=== PATIENT | female | born 1990 | race Caucasian/White ===

== ENCOUNTER 2016-12-12 19:51 | Emergency (ER) | payer SELFPAY ==
[~2016-12-12] VITALS: Ht 172.7 cm; Wt 74.8 kg
[2016-12-12 19:52] VITALS: BP 137/82; PULSE 100; RESP 14; TEMP 97.9; O2SAT 100
[2016-12-12 20:50] LABS: GLUCOSE,URINE NEG (NEG); KETONE, URINE 15 mg/dL (NEG); NITRITE,URINE NEG (NEG)
[2016-12-12 21:02] LABS: BLOOD, URINE TRACE (NEG)
[2016-12-12 21:08] LABS: SQUAMOUS EPITHELIAL CELL URINE 0-5 /hpf (0-5); URINE COLOR STRAW (YELLW/STRAW)
[2016-12-12 21:09] LABS: RBC, URINE 0-3 /hpf (0-3)
[2016-12-12 21:10] LABS: BACTERIA, URINE RARE /hpf; WBC, URINE 0-2 /hpf (0-5)
[2016-12-12 21:14] LABS: COMMENT (UR) CULT NOT INDICATED; CULTURE IF INDICATED CULT NOT INDICATED
[2016-12-12] MEDS ORDERED: CIPR-9 PO (21:57)
[2016-12-12] MEDS ORDERED: PREV15CA15 PO (21:57)
[2016-12-12] MEDS ORDERED: ZANT150T2 PO (21:57)
--- NOTE | 2016-12-12 22:18 | PD ---
HPI Chief Complaint: GI Complaint Time Seen by Provider: 22:04 Travel History International Travel<30 days: No Contact w/Intl Traveler<30days: No Traveled to known affect area: No History of Present Illness HPI The patient is a 26-year-old female that for 2-3 weeks has had intermittent constipation/diarrhea and midline epigastric pain. She denies any blood in the stool or vomitus. She denies any recent foreign travel, well water ingestion, recent antibiotics except that 3 weeks ago took part of the Z-Juvenal but didn't complete it, exposure to anyone with similar symptoms, fever, history of bowel problems like regional enteritis or ulcerative colitis. She does have some chills. 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 She states she cannot be and a test here on the urine was negative. She went to an urgent care center today and was prescribed Cipro which she came here for a second opinion. She does not have any insurance or primary care doctor. [facility] Past Medical History Medical History: Denies Significant Hx Diminished Hearing: No Immunizations Current: No Tetanus Vaccination: Unknown Influenza Vaccination: No ?: Not LMP: 9-18-17 : 0 Past Surgical History Surgical History: No Previous Surgery Social History Alcohol Use: Yes (SOCIAL) Tobacco Use: No Substance Use: No Allergies-Medications (Allergen,Severity, Reaction): Coded Allergies: No Known Allergies (Unverified , 12/12/16) Reported Meds & Prescriptions Reported Meds & Active Scripts Active Reported Zantac (Ranitidine HCl) 150 Mg Tab 150 Mg PO DAILY Prevacid (Lansoprazole) 15 Mg Capdr 15 Mg PO DAILY Cipro (Ciprofloxacin HCl) 500 Mg Tab 500 Mg PO BID Review of Systems Except as stated in HPI: all other systems reviewed are Neg Physical Exam Narrative GENERAL: The patient is alert, oriented 3, minimally dehydrated appearing in minimal apparent distress with her abdominal discomfort. Her heart rate is 100 but the rest of her vital signs are normal. She does appear anxious. SKIN: Focused skin assessment warm/dry. HEAD: Atraumatic. Normocephalic. EYES: Pupils equal and round. No scleral icterus. No injection or drainage. ENT: No nasal bleeding or discharge. Mucous membranes pink and moist. NECK: Trachea midline. No JVD. CARDIOVASCULAR: Regular rate and rhythm. No murmur appreciated. RESPIRATORY: No accessory muscle use. Clear to auscultation. Breath sounds equal bilaterally. GASTROINTESTINAL: Abdomen soft, with tenderness to direct palpation in the midline epigastrium, nondistended. Hepatic and splenic margins not palpable. No guarding or rebound is present. Gonsalez's sign is negative. MUSCULOSKELETAL: No obvious deformities. No clubbing. No cyanosis. No edema. NEUROLOGICAL: Awake and alert. No obvious cranial nerve deficits. Motor grossly within normal limits. Normal speech. PSYCHIATRIC: The patient does appear slightly anxious; insight and judgment normal. Data Data Last Documented VS Vital Signs Date Time Temp Pulse Resp B/P (MAP) Pulse Ox O2 Delivery O2 Flow Rate FiO2 12/12/16 23:26 98.2 78 14 124/69 (87) 99 Room Air Orders Orders Urinalysis - C+S If Indicated (12/12/16 20:23) Ed Urine Pregnancytest Poc (12/12/16 20:23) Complete Blood Count With Diff (12/12/16 22:54) Comprehensive Metabolic Panel (12/12/16 22:54) Lipase (12/12/16 22:54) Ct Abd/Pel W Iv Contrast(Rout) (12/12/16 22:54) Iv Access Insert/Monitor (12/12/16 22:54) Ecg Monitoring (12/12/16 22:54) Oximetry (12/12/16 22:54) Sodium Chloride 0.9% Flush (Ns Flush) (12/12/16 23:00) Sodium Chlor 0.9% 1000 Ml Inj (Ns 1000 M (12/12/16 23:00) Iohexol 350 Inj (Omnipaque 350 Inj) (12/12/16 23:35) Labs Laboratory Tests Test 12/12/16 20:32 12/12/16 23:20 Urine Color STRAW Urine Turbidity CLEAR Urine pH 6.0 Urine Specific [place] 1.004 Urine Protein NEG mg/dL Urine Glucose (UA) NEG mg/dL Urine Ketones 15 mg/dL Urine Occult Blood TRACE Urine Nitrite NEG Urine Bilirubin NEG Urine Leukocyte Esterase TRACE Urine RBC 0-3 /hpf Urine WBC 0-2 /hpf Urine Squamous Epithelial Cells 0-5 /hpf Urine Bacteria RARE /hpf Microscopic Urinalysis Comment CULT NOT INDICATED White Blood Count 9.3 TH/MM3 Red Blood Count 4.82 MIL/MM3 Hemoglobin 14.3 GM/DL Hematocrit 42.6 % Mean Corpuscular Volume 88.3 FL Mean Corpuscular Hemoglobin 29.7 PG Mean Corpuscular Hemoglobin Concent 33.7 % Red Cell Distribution Width 12.2 % Platelet Count 247 TH/MM3 Mean Platelet Volume 9.0 FL Neutrophils (%) (Auto) 70.5 % Lymphocytes (%) (Auto) 24.1 % Monocytes (%) (Auto) 4.2 % Eosinophils (%) (Auto) 0.7 % Basophils (%) (Auto) 0.5 % Neutrophils # (Auto) 6.6 TH/MM3 Lymphocytes # (Auto) 2.2 TH/MM3 Monocytes # (Auto) 0.4 TH/MM3 Eosinophils # (Auto) 0.1 TH/MM3 Basophils # (Auto) 0.0 TH/MM3 CBC Comment DIFF FINAL Differential Comment Blood Urea Nitrogen 7 MG/DL Creatinine 0.59 MG/DL Random Glucose 88 MG/DL Total Protein 7.4 GM/DL Albumin 4.0 GM/DL Calcium Level 9.1 MG/DL Alkaline Phosphatase 54 U/L Aspartate Amino Transf (AST/SGOT) 9 U/L Alanine Aminotransferase (ALT/SGPT) 18 U/L Total Bilirubin 0.6 MG/DL Sodium Level 137 MEQ/L Potassium Level 3.3 MEQ/L Chloride Level 104 MEQ/L Carbon Dioxide Level 25.3 MEQ/L Anion Gap 8 MEQ/L Estimat Glomerular Filtration Rate 122 ML/MIN Lipase 145 U/L MDM Medical Decision Making Medical Screen Exam Complete: Yes Emergency Medical Condition: Yes Medical Record Reviewed: Yes Interpretation(s) The CT abdomen/pelvis is normal. The complete metabolic profile is normal except for a potassium of 3.3. The lipase is normal. The CBC is normal. The urinalysis is normal except for trace occult blood and trace leukocyte esterase and rare bacteria and culture is not indicated. Differential Diagnosis Reflux esophagitis, Irritable bowel syndrome, gastroenteritis, colitis, cholecystitis, cholelithiasis with colic, dehydration, electrolyte disorder, anemia Narrative Course The patient has symptoms of both reflux esophagitis and irritable bowel syndrome. There is no evidence for the above possibilities except possibly gastroenteritis by history. Plan: The patient be given prescriptions for Zantac, Compazine and Prilosec. For temporary relief of her midline epigastric discomfort she can try liquid Maalox or Mylanta. Diagnosis Primary Impression: Reflux esophagitis Additional Impression: Irritable bowel syndrome Additional Instructions: As we discussed, if the symptoms are persistent you may need to see a specialist , a classifications officer cc/cm. The Zantac is one tablet twice daily in the Prilosec is one tablet once daily. Try liquid Maalox/Mylanta for temporary relief of some of your midline upper abdominal symptoms. The prochlorperazine is for nausea. This tablet is one every 6 hours as needed. Med/Other Pt SpecificInfo: Prescription(s) given Scripts Omeprazole (Omeprazole) 20 Mg Tab 20 MG PO DAILY, #30 TAB 0 Refills Prov: Niranjan Bolden MD 12/13/16 Ranitidine (Zantac) 150 Mg Tab 150 MG PO BID for Reduce Stomach Acid, #60 TAB 0 Refills Prov: Niranjan Bolden MD 12/13/16 Prochlorperazine Maleate (Prochlorperazine Maleate) 10 Mg Tab 10 MG PO Q6H Y for NAUSEA OR VOMITING, #30 TAB 0 Refills Prov: Niranjan Bolden MD 12/13/16 Disposition: 01 DISCHARGE HOME Condition: Stable Niranjan Bolden MD Dec 12, 2016 22:18
[2016-12-12] MEDS ORDERED: SODIUM CHLORIDE 0.9% FLUSH 10 ML FLUSH IV FLUSH PRN (23:00)
[2016-12-12] MEDS ORDERED: SODIUM CHLOR 0.9% 1000 ML INJ 1,000 ML IV SCH (23:00)
[2016-12-12 23:26] VITALS: BP 124/69; PULSE 78; RESP 14; TEMP 98.2; O2SAT 99
[2016-12-12] MEDS ORDERED: IOHEXOL 350 MG/ML 10 ML VIAL (for RAD DIAG) IVCONTRAST ONE (23:35)
[2016-12-12 23:40] LABS: AUTOMATED NEUTROPHIL # 6.6 TH/MM3 (1.8-7.7); BASOPHIL % 0.5 % (0.0-2.0); EOSINOPHIL # 0.1 TH/MM3 (0-0.4); EOSINOPHIL % 0.7 % (0.0-4.0); HEMATOCRIT 42.6 % (35.0-46.0); HEMO FLAGS DIFF FINAL; LYMPH % 24.1 % (9.0-44.0); LYMPHOCYTE # 2.2 TH/MM3 (1.0-4.8); MEAN CELL VOLUME 88.3 FL (80.0-100.0); MEAN CORPUSCULAR HEMOGLOBIN 29.7 PG (27.0-34.0); MEAN CORPUSCULAR HGB CONC 33.7 % (32.0-36.0); MONO % 4.2 % (0.0-8.0); NEUT % 70.5 % (16.0-70.0); PLATELET COUNT 247 TH/MM3 (150-450); RED BLOOD COUNT 4.82 MIL/MM3 (4.00-5.30); RED CELL DISTRIBUTION WIDTH 12.2 % (11.6-17.2); WHITE BLOOD COUNT 9.3 TH/MM3 (4.0-11.0)
--- NOTE | 2016-12-12 23:42 | RADRPT ---
EXAM DATE/TIME: 12/12/2016 23:25 [facility] COMPARISON: No previous studies available for comparison. INDICATIONS : Mid epigastric pain. IV CONTRAST: 100 cc Omnipaque 350 (iohexol) IV ORAL CONTRAST: No oral contrast ingested. RADIATION DOSE: 10.58 CTDIvol (mGy) MEDICAL HISTORY : None SURGICAL HISTORY : None. ENCOUNTER: Initial ACUITY: 3 weeks PAIN SCALE: 5/10 LOCATION: upper quadrant midline TECHNIQUE: Volumetric scanning of the abdomen and pelvis was performed. Using automated exposure control and ad justment of the mA and/or kV according to patient size, radiation dose was kept as low as reasonably achievable to obtain optimal diagnostic quality images. DICOM format image data is available electro nically for review and comparison. FINDINGS: LOWER LUNGS: The visualized lower lungs are clear. LIVER: Homogeneous density without lesion. There is no dilation of the biliary tree. No calcified gallston es. SPLEEN: Normal size without lesion. PANCREAS: Within normal limits. KIDNEYS: Normal in size and shape. There is no mass, stone or hydronephrosis. ADRENAL GLANDS: Within normal limits. VASCULAR: There is no aortic aneurysm. BOWEL/MESENTERY: The stomach, small bowel, and colon demonstrate no acute abnormality. There is no free intraperitone al air or fluid. ABDOMINAL WALL: Within normal limits. RETROPERITONEUM: There is no lymphadenopathy. BLADDER: No wall thickening or mass. REPRODUCTIVE: Minimal free fluid. No evidence of adnexal mass. INGUINAL: There is no lymphadenopathy or hernia. MUSCULOSKELETAL: Within normal limits for patient age. CONCLUSION: Normal examination. Baljinder Louise MD on December 12, 2016 at 23:37 Board Certified Radiologist. This report was verified electronically.
[2016-12-12 23:47] LABS: CHLORIDE 104 MEQ/L (98-107); POTASSIUM 3.3 MEQ/L (3.5-5.1); SODIUM (NA) 137 MEQ/L (136-145)
[2016-12-12 23:52] LABS: ANION GAP 8 MEQ/L (5-15); BICARBONATE 25.3 MEQ/L (21.0-32.0); BLOOD UREA NITROGEN 7 MG/DL (7-18)
[2016-12-12 23:54] LABS: ALT (GPT) 18 U/L (10-53); AST (GOT) 9 U/L (15-37)
[2016-12-12 23:55] LABS: GLOMERULAR FILTRATION RATE 122 ML/MIN (>89)
[2016-12-12 23:56] LABS: TOTAL BILIRUBIN ADULT 0.6 MG/DL (0.2-1.0)
[2016-12-12 23:57] LABS: ALKALINE PHOSPHATASE 54 U/L (45-117)
[2016-12-13] MEDS ORDERED: ZANT150T2 PO (00:11)
[2016-12-13] MEDS ORDERED: OMEP20TA PO (00:11)
[2016-12-13] MEDS ORDERED: PROC10TA PO (00:11)
[2016-12-13 00:23] VITALS: BP 123/70; TEMP 98.2
== END 2016-12-13 00:35 | disposition home or self-care (01) ==
LOC: PHED 19:51
DX: K21.0 Gastro-esophageal reflux disease with esophagitis (principal); K58.0 Irritable bowel syndrome with diarrhea; K58.1 Irritable bowel syndrome with constipation
CPT/HCPCS: 74177; 80053; 81001; 83690; 84703; 85025; 96360; 99285; J7030; Q9967